=== PATIENT | female | born 1950 | race Caucasian/White ===

== ENCOUNTER 2016-08-26 12:12 | Day surgery (SDC) | payer OTHER ==
[2016-08-19 15:57] VITALS: BMI 34.4
--- NOTE | 2016-08-20 09:39 | HP ---
Admitting History and Physical - Primary Care Physician PCP: Danial Jensen - Admission Chief Complaint: Right breast cancer History of Present Illness: 66 year old postmenapausal female S/P right breast wide excision intraop radiation and a positive axillary lymph node. She is S/P chemotherapy and external radiation. Here for port removal. History Source: Patient Limitations to Obtaining History: No Limitations - Past Medical History Cardiovascular: Yes: HTN, Hyperlipdemia Gastrointestinal: Yes: GERD - Past Surgical History Past Surgical History: Yes: Appendectomy (1967), Cholecystectomy (1977), Mastectomy (Right partial mastectomy RT and chemotherapy for invasive ductal carcinoma and a positive axillary node) - Smoking History Smoking history: Never smoked Have you smoked in the past 12 months: No - Alcohol/Substance Use Hx Alcohol Use: No Home Medications - Allergies Allergies/Adverse Reactions: Allergies Allergy/AdvReac Type Severity Reaction Status Date / Time No Known Allergies Allergy Verified 07/09/15 10:22 - Home Medications Home Medications: Ambulatory Orders Calcium 600 mg PO DAILY 07/16/15 Esomeprazole Mag Trihydrate [Nexium] 40 mg PO DAILY 07/16/15 Hydrochlorothiazide [Hctz -] 25 mg PO DAILY 07/16/15 Potassium Chloride [K-Dur] 10 meq PO Q48H 07/16/15 Propranolol HCl [Propranolol HCl ER] 160 mg PO DAILY 07/16/15 Simvastatin [Zocor -] 10 mg PO HS 07/16/15 Tamoxifen Citrate 20 mg PO DAILY 08/19/16 Family Disease History - Family Disease History Family Disease History: CA: Mother (breast ca 62) Physical Examination Constitutional: Yes: Well Nourished, No Distress Breast(s): Yes: Other ( Healed scar S/P right breast wide excision and axilla. typical scarring under wide excision site no recurrence or adnopathy felt left breast negative) Problem List - Problems (1) Breast cancer, right breast Code(s): C50.911 - MALIGNANT NEOPLASM OF UNSP SITE OF RIGHT FEMALE BREAST Qualifiers: Breast location: overlapping sites of breast Patient gender: female Qualified Code(s): C50.811 - Malignant neoplasm of overlapping sites of right female breast Assessment/Plan Life port removal
[2016-08-26] MEDS ORDERED: ONDANSETRON 4 MG/2 ML VIAL ONE (13:38)
[2016-08-26] MEDS ORDERED: DEXAMETHASONE SOD PHOSPHATE 4 MG/1 ML VIAL ONE (13:38)
[2016-08-26] MEDS ORDERED: PROPOFOL 20 ML ONE (13:39)
[2016-08-26] MEDS ORDERED: MIDAZOLAM HCL 2 MG/2 ML SINGLE DOSE VIAL ONE (13:39)
[2016-08-26] MEDS ORDERED: LIDOCAINE HCL 1%, 10 MG/ML (20ML VIAL) ONE ×2 (14:19→14:25)
[2016-08-26] MEDS ORDERED: oxyCODONE HCL 5 MG TABLET PO PRN (14:35)
[2016-08-26] MEDS ORDERED: LIDOCAINE HCL 1%, 10 MG/ML (50 mL VIAL) IJ ONE ×2 (14:43)
[2016-08-26] MEDS ORDERED: ONDANSETRON 4 MG/2 ML VIAL IVPUSH PRN (15:08)
[2016-08-26] MEDS ORDERED: ONDANSETRON 4 MG/2 ML VIAL IVPB PRN (15:22)
[2016-08-26] MEDS ORDERED: DEXTROSE 5%-0.45% SALINE 1,000 ML IV SCH (15:30)
[2016-08-26] MEDS ORDERED: KETOROLAC TROMETHAMINE 30 MG/1 ML VIAL IVPUSH PRN (15:46)
[2016-08-26 16:33] VITALS: BP 117/61; PULSE 61; TEMP 98
--- NOTE | 2016-08-27 08:17 | OP ---
DATE OF OPERATION: 08/26/2016 PREOPERATIVE DIAGNOSIS: History of right breast cancer. POSTOPERATIVE DIAGNOSIS: History of right breast cancer. PROCEDURE: Removal of a left-sided single-lumen Port-A-Cath. PRIMARY SURGEON: Rui Jensen MD ECOLOGIST TECHNICIAN: EDUARDO Muller ANESTHESIA: Local with IV sedation. COMPLICATIONS: None. DESCRIPTION OF PROCEDURE: Briefly, the patient is a 66-year-old postmenopausal female of [place] descent whose mother had breast cancer at age 62. The patient developed a spiculated density in the medial aspect of the right breast which was biopsy proven well-differentiated invasive duct cancer, and she underwent a right breast partial mastectomy with intraoperative radiation on July 17, 2015, and was found to have a 6-mm moderately differentiated invasive duct cancer which was ER/SD positive and HER-2/tiffany negative. MRI preoperatively showed this to be localized. She underwent chemotherapy through Dr. Norman and finished in December of 2015. She had external beam radiation and has been on Tamoxifen. She now presents for removal of a left-sided Port-A-Cath. The patient was brought in through ambulatory surgery, and in the holding area, site verification was made and informed consent was obtained. She was brought into the operating room and laid on the OR table in the supine position. Venodynes were placed on the lower extremities. She did not receive antibiotics given the small nature of the procedure. The left chest wall was sterilely prepped and draped in the usual fashion, and the left arm was placed at her side. She was given IV sedation. Lidocaine 1% was then given directly over Port-A-Cath site and the previous incision was opened and dissection was undertaken around the Port-A-Cath. The Port-A-Cath was completely resected with the catheter intact. Hemostasis was achieved. The capsule was removed as well. At this point the wound was closed using interrupted 2-0 plain suture, and the skin was closed using interrupted 3-0 deep dermal Vicryl suture and a running 4-0 subcuticular Biosyn suture. Mastisol and Steri-Strips were applied over the wound, compressive dressing placed over this. The patient tolerated the procedure well without difficulty, and estimated blood loss was minimal. All sponge and needle counts were correct at the end of the case. The patient was awake and alert at the end of the case and was told to keep the wound dry for the next 48 hours, at which time she may shower normally. The patient can follow up in the office in 1 week for formal wound check. RUI JENSEN M.D. [id number]
--- NOTE | 2016-08-27 08:26 | OP ---
DATE OF OPERATION: 08/26/2016 PREOPERATIVE DIAGNOSIS: History of right breast cancer overlapping. POSTOPERATIVE DIAGNOSIS: History of right breast cancer overlapping. PROCEDURE: Removal of a left-sided single-lumen Port-A-Cath. ANESTHESIA: Local with IV sedation. SURGEON: Rui Jensen MD MAINTENANCE ADVISOR: EDUARDO Muller COMPLICATIONS: None. DESCRIPTION OF PROCEDURE: Briefly, the patient is a 66-year-old postmenopausal female of [place] descent with a family history with a mother who had breast cancer at age 62. The patient was found to have a spiculated mass in the medial aspect of the right breast which was biopsy-proven cancer. MRI showed it to be localized. She underwent the right breast partial mastectomy with intraoperative radiation, and pathology showed a 6-mm well-differentiated invasive duct cancer, and she did have a positive sentinel node with a 4-mm focus of invasive cancer. The patient underwent chemotherapy through Dr. Norman and finished in December of 2015 and required external beam radiation as well. She was then placed on Tamoxifen. She now presents for removal of the left-sided Port-A-Cath. The patient was brought in through ambulatory surgery on August 26, 2016. In the holding area, site verification was made and informed consent was obtained. She was brought into the operating room and laid on the OR table in a supine position. No IV antibiotics were given, given the small nature of the excision. Venodynes were placed on the lower extremities. She received IV sedation. Lidocaine 1% was then given over the left chest wall after it was sterilely prepped and draped. The previous incision was opened and the Port-A-Cath chamber was easily removed intact with the entire catheter. The capsule was removed as well, and hemostasis was achieved using electrocautery. The wound was then closed using interrupted 2-0 plain suture, then interrupted 3-0 deep dermal Vicryl suture and a running 4-0 subcuticular Biosyn suture. Mastisol and Steri-Strips were applied over the wound with a compressive dressing placed over this. The patient tolerated the procedure well without difficulty and was brought back to ambulatory surgery postoperatively and will be discharged home the same day. Estimated blood loss was minimal, and all sponge and needle counts were correct at the end of the case. The patient will follow up in the office in 1 week for formal wound pathology check. RUI JENSEN M.D. [id number]
--- NOTE | 2016-08-28 08:34 | PATH ---
Surgical Pathology Report Patient Name: SHAHIDA LAI Med. Rec. #: [id number] /Age/Gender: 1950 (Age: 66) / F Account: [id number] Location: [facility] Taken: 08/26/2016 Received: 08/26/2016 Reported: 08/28/2016 Physicians: Danial Jensen M.D. 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 Electronically Signed Miguel Kimbrough M.D. Gross Description Received fresh, labeled "life port," is a 2.5 x 2.3 x 1.3 cm purple, triangular device, consistent with a life port. The specimen displays a 20 cm in length portion of tubing extending from one aspect. No soft tissue is present. No sections are submitted, gross only. /08/27/2016 saudi08/27/2016
== END 2016-08-26 16:15 | disposition home or self-care (01) ==
LOC: FASU 12:12
PROVIDERS: ATTEND Surgery Surgical Oncology
PROC: 0JPT0XZ Removal of Tunneled Vascular Access Device from Trunk Subcutaneous Tissue and Fascia, Open Approach (ICD-10-PCS; principal; 2016-08-26 14:43)
DX: Z45.2 Encounter for adjustment and management of vascular access device (principal); Z85.3 Personal history of malignant neoplasm of breast; Z90.11 Acquired absence of right breast and nipple; I10 Essential (primary) hypertension; K21.9 Gastro-esophageal reflux disease without esophagitis; E78.5 Hyperlipidemia, unspecified
CPT/HCPCS: 88300-TC